=== PATIENT | female | born 1995 | race Two or more races ===

== ENCOUNTER 2023-11-12 07:49 | Emergency (ER) | payer MEDICAID, OTHER ==
[~2023-11-12] VITALS: Ht 167.6 cm; Wt 101.2 kg
[2023-11-12 08:00] VITALS: BP 117/76; TEMP 98
[2023-11-12 08:35] VITALS: PULSE 85; RESP 18; O2SAT 97
[2023-11-12] MEDS ORDERED: DOXY-286 PO (08:41)
[2023-11-12] MEDS ORDERED: CLIN1AER5 EX (08:41)
[2023-11-12] MEDS: LIDOCAINE 1% HCL (LOCAL ANESTH.) INJ 20ML MDV ID ONE (09:01)
[2023-11-12] MEDS: HYDROcodone-ACET 5/325MG TAB PO ONE (09:37)
[2023-11-12] MEDS ORDERED: IBUP-1456 PO (10:32)
[2023-11-12] MEDS ORDERED: CEPH500C PO (10:32)
== END 2023-11-12 09:47 | disposition home or self-care (01) ==
LOC: ER 07:49
DX: L02.31 Cutaneous abscess of buttock (principal); L73.2 Hidradenitis suppurativa; Z79.1 Long term (current) use of non-steroidal anti-inflammatories (NSAID); Z79.899 Other long term (current) drug therapy
CPT/HCPCS: 10060; 99283; J2001

== ENCOUNTER 2023-12-20 07:47 | Emergency (ER) | payer MEDICAID ==
[~2023-12-20] VITALS: Ht 167.6 cm; Wt 97.7 kg
[~2023-12-20 07:47] MED LIST: CEPH500C PO; IBUP-1456 PO
[2023-12-20] MEDS ORDERED: BENZ200C64 PO (08:34)
[2023-12-20 08:38] VITALS: BP 106/52; PULSE 78; RESP 16; TEMP 97.7; O2SAT 98
== END 2023-12-20 08:40 | disposition home or self-care (01) ==
LOC: ER 07:47
DX: J20.9 Acute bronchitis, unspecified (principal)
CPT/HCPCS: 71045

== ENCOUNTER 2024-02-05 08:10 | Emergency (ER) | payer MEDICAID ==
[~2024-02-05] VITALS: Ht 167.6 cm; Wt 101.1 kg
[~2024-02-05 08:10] MED LIST changes: +BENZ200C64 PO
[2024-02-05 08:57] VITALS: BP 130/85; PULSE 93; RESP 18; TEMP 97.7; O2SAT 98
[2024-02-05 09:26] LABS: Urine Bacteria FEW /hpf (None Seen); Urine Blood Negative /uL (Negative); Urine Clarity Turbid (Clear); Urine Protein, UAD Negative (Negative); Urine Urobilinogen Normal (Negative); Urine WBC 8 /hpf (0 - 5); Urine pH 6.5 (5.0-9.0)
[2024-02-05 09:28] LABS: Urine Color Straw (Yellow)
[2024-02-05] MEDS ORDERED: PHEN95TA10 PO (10:02)
[2024-02-05] MEDS ORDERED: NITR-87 PO (10:02)
[2024-02-06 08:06] LABS: RPR Non Reactive (Non Reactive)
[2024-02-06 22:06] LABS: Chlamydia Trachomatis, NAA Negative (Negative); Neisseria gonorrhoeae, NAA Negative (Negative)
== END 2024-02-05 10:03 | disposition home or self-care (01) ==
LOC: ER 08:10
DX: N30.90 Cystitis, unspecified without hematuria (principal); Z20.6 Contact with and (suspected) exposure to human immunodeficiency virus [HIV]
CPT/HCPCS: 81001; 86592; 86703

== ENCOUNTER 2024-08-31 08:21 | Emergency (ER) | payer MEDICAID ==
[~2024-08-31] VITALS: Ht 167.6 cm; Wt 95.1 kg
[~2024-08-31 08:21] MED LIST changes: +NITR-87 PO; +PHEN95TA10 PO
--- NOTE | 2024-08-31 09:11 | ED.PDOC ---
History of Present Illness HPI Comments 29F presents to the ER w/ no prior Hx associated to the c/c of lower back pain. Pt reports that she had COVID 4 weeks ago and is currently negative but still has constant cough. Pt notes on also being very dizzy, and whenever she coughs, she has lower back pain. Pt also states symptoms of a AGUIRRE and weakness. Denies chills, fever, N/V/D< SOB, CP or other associated symptoms, modifiers or recent injuries or sick contact at this time. Chief Complaint: Back Pain Time Seen by MD: 08:40 Primary Care Provider: raffi Reviewed Notes: Nurses Notes, Medications, Allergies Allergies: Coded Allergies: NO KNOWN ALLERGIES (Unverified , 11/12/23) Home Meds Active Scripts Acetaminophen (Tylenol) 650 Mg Rc, 650 MG PA Q6HPRN PRN, #60 SUPP.RECT Prov:JENNY DUARTE MD 08/31/24 Ibuprofen (Ibuprofen) 400 Mg Tab, 1 TAB PO Q6HPRN, #60 TAB Prov:JENNY DUARTE MD 08/31/24 Sulfamethoxazole W/Trimethopri (Bactrim Ds Tablet) 1 Tab Tb, 1 TAB PO BID for 5 Days, #10 TAB Prov:JENNY DUARTE MD 08/31/24 Phenazopyridine Hcl (Azo Tabs) 95 Mg Tab, 2 TAB PO TID for 2 Days, #12 TAB 0 Refills Prov:XENIA CADENA NP 02/05/24 Nitrofurantoin Monohydrate Mac (Macrobid) 100 Mg Cap, 100 MG PO BID for 5 Days, #10 CAP 0 Refills Prov:XENIA CADENA NP 02/05/24 Benzonatate (Benzonatate) 200 Mg Cap, 1 CAP PO TIDP, #30 CAP Prov:ARNULFO NICKERSON 12/20/23 Ibuprofen (Ibuprofen) 800 Mg Tab, 1 TAB PO TIDWM for 14 Days, #42 TAB 0 Refills Prov:XENIA CADENA NP 11/12/23 Cephalexin Monohydrate (Cephalexin) 500 Mg Cap, 1 CAP PO QID for 10 Days, #40 CAP 0 Refills Prov:XENIA CADENA NP 11/12/23 Information Source: Patient Mode of Arrival: Ambulatory Severity: Moderate Timing: Weeks Duration: Since onset Prehospital treatment: None Past Medical History PAST MEDICAL HISTORY: Denies Surgical History: Denies all surgeries FILLING HAND History: No Pertinent FILLING HAND History Family History Family History: Reviewed,noncontributory to illness, Unknown Social History Smoker: Non-Smoker Alcohol: Denies ETOH Use Drugs: Denies Drug Use Lives In: Home Constitutional: denies: chills, diaphoresis, fatigue, fever, malaise, sweats, weakness, others EENTM: denies: blurred vision, double vision, ear bleeding, ear discharge, ear drainage, ear pain, ear ringing, eye pain, eye redness, hearing loss, mouth pain, mouth swelling, nasal discharge, nose bleeding, nose congestion, nose pain, photophobia, tearing, throat pain, throat swelling, voice changes, others Respiratory: reports: cough; denies: hemoptysis, orthopnea, SOB at rest, shortness of breath, SOB with excertion, stridor, wheezing, others Cardiovascular: denies: chest pain, dizzy spells, diaphoresis, Dyspnea on exertion, edema, irregular heart beat, left arm pain, lightheadedness, palpitations, PND, syncope, others Gastrointestinal: denies: abdomen distended, abdominal pain, blood streaked bowels, constipated, diarrhea, dysphagia, difficulty swallowing, hematemesis, melena, nausea, poor appetite, poor fluid intake, rectal bleeding, rectal pain, vomiting, others Genitourinary: denies: abnormal vagina bleeding, burning, dyspareunia, dysuria, flank pain, frequency, hematuria, incontinence, pain, , vagina discharge, urgency, others Neurological: denies: dizziness, fainting, headache, left sided numbness, left sided weakness, numbness, paresthesia, pre-existing deficit, right sided numbness, right sided weakness, seizure, speech problems, tingling, tremors, weakness, others Musculoskeletal: reports: back pain; denies: gout, joint pain, joint swelling, muscle pain, muscle stiffness, neck pain, others Integumetry: denies: bruises, change in color, change in hair/nails, dryness, laceration, lesions, lumps, rash, wounds, others Allergic/Immunocompromised: denies: Difficulty Healing, Frequent Infections, Hives, Itching, others Hematologic/Lymphatic: denies: anemia, blood clots, easy bleeding, easy bruising, swollen glands, others Endocrine: denies: excessive hunger, excessive sweating, excessive thirst, excessive urination, flushing, intolerance to cold, intolerance to heat, unexplained weight gain, unexplained weight loss, others Psychiatric: denies: anxiety, bipolar disorder, depression, hopeless, panic disorder, schizophrenia, sleepless, suicidal, others All Other Systems: Reviewed and Negative Physical Exam General Appearance: No Apparent Distress, Normal HEENT: Normal ENT Inspection, Pharynx Normal, TMs Normal Neck: Full Range of Motion, Non-Tender, Normal, Normal Inspection Respiratory: Chest Non-Tender, Lungs Clear, No Accessory Muscle Use, No Respiratory Distress, Normal Breath Sounds Cardiovascular: No Edema, No JVD, No Murmur, No Gallop, Normal Peripheral Pulses, Regular Rate/Rhythm Breast Exam: Deferred Gastrointestinal: No Organomegaly, Non Tender, No Pulsatile Mass, Normal Bowel Sounds, Soft Genitalia: Deferred Pelvic: Deferred Rectal: Deferred Extremities: No calf tenderness, Normal capillary refill, Normal inspection, Normal range of motion, Non-tender, No pedal edema Musculoskeletal : Apperance: Normal Neurologic: Alert, multiple sclerosis nurse II-XII nml as Tested, No Motor Deficits, Normal Affect, Normal Mood, No Sensory Deficits Cerebellar Function: Normal Reflexes: Normal Skin: Dry, Normal Color, Warm Lymphatic: No Adenopathy Was a procedure done? Was a procedure done?: No Differential Dx Considerations may include: Musculoskeletal pain, pyelonephritis, viral URI X-Ray, Labs, Meds, VS Vital Signs Date Time Temp Pulse Resp B/P (MAP) Pulse Ox O2 Delivery O2 Flow Rate FiO2 08/31/24 13:23 98.1 95 18 98/75 (83) 97 98.1 08/31/24 09:19 107 16 99 Room Air* 0 21 08/31/24 09:18 97.6 107 16 124/87 (99) 99 97.6 08/31/24 08:37 97.9 100 19 117/70 (86) 97 Lab Test 08/31/24 09:12 08/31/24 08:58 Range/Units Influenza Type A Antigen Negative Negative Influenza Type B Antigen Negative Negative Urine Color Light-yellow Yellow Urine Clarity Clear Clear Urine pH 5.5 5.0-9.0 Urine Specific Pey[place] 1.025 1.001-1.035 Urine Protein Negative Negative Urine Ketones Negative Negative Urine Blood Negative Negative /uL Urine Nitrite Negative Negative Urine Bilirubin Negative Negative Urine Urobilinogen Normal Negative mg/dL Urine Leukocyte Esterase 2+ Negative /uL Urine RBC 2 0 - 4 /hpf Urine WBC 5 0 - 5 /hpf Urine Squamous Epithelial Cells Few <5 /hpf Urine Bacteria None seen None Seen /hpf Urine Glucose Normal Normal mg/dL Urine Test Negative Negative Group A Streptococcus Rapid Negative Current Medications Medications (Trade) Dose Ordered Sig/Negrita Route Start Time Stop Time Status Last Admin Ketorolac Tromethamine (Toradol Injection) 30 mg ONCE ONCE IM 08/31/24 14:00 08/31/24 14:01 DC 08/31/24 14:00 Time of 1ST Reevaluation: 09:10 Reevaluation 1ST: Unchanged Patient Education/Counseling: Diagnosis, Treatment, Prognosis Family Education/Counseling: No Family Present Departure 1 Departure Time of Disposition: 17:45 Impression: Primary Impression: Cystitis Additional Impression: URI (upper respiratory infection) Disposition: 01 HOME / SELF CARE / HOMELESS Condition: Stable Additional Instructions: Thank you for visiting our Emergency Room. I wish you full and complete recovery. Please follow the following instructions: 1. Take your medication bottles with you to EVERY DOCTOR'S VISIT (including your primary doctor). 2. Please follow up with your primary doctor in 2-3 days or sooner if symptoms do not improve. 3. Please read all the papers given to you at the time of the discharge so that you understand your condition better. 4. Please note that the emergency room visits are focused and not necessarily comprehensive. Therefore, it is possible that some occult medical conditions may go undiagnosed in the ER. 5. The emergency room visits are not and should not be thought of as replacement for regular visits with your primary doctor. 6. Therefore, it is absolutely critical that you follows up with your primary doctor on regular basis to make sure you receives a complete and comprehensive care. 7. I recommended the you take the hospital discharge papers to your primary care physician and other doctors' offices with you. 8. Go to your nearest emergency room if you think your condition gets worse or you think your condition is an emergency. e-Prescriptions Acetaminophen (Tylenol) 650 Mg Rc 650 MG PA Q6HPRN PRN, #60 SUPP.RECT Prov: JENNY DUARTE MD 08/31/24 Ibuprofen (Ibuprofen) 400 Mg Tab 1 TAB PO Q6HPRN, #60 TAB Prov: JENNY DUARTE MD 08/31/24 Sulfamethoxazole W/Trimethopri (Bactrim Ds Tablet) 1 Tab Tb 1 TAB PO BID for 5 Days, #10 TAB Prov: JENNY DUARTE MD 08/31/24 Discharged With: Self Critical Care Note Critical Care Time?: No Stability Stability form required: No I personally scribed for JENNY DUARTE MD ([email or web address]) on 08/31/24 at 09:11. Electronically submitted by Barrington Montejo ([email or web address]). JENNY DUARTE MD Aug 31, 2024 09:11
[2024-08-31 09:19] VITALS: PULSE 107; RESP 16; O2SAT 99
[2024-08-31 10:30] LABS: Urine Bacteria None Seen /hpf (None Seen)
[2024-08-31 11:07] LABS: Urine Blood Negative /uL (Negative); Urine Clarity Clear (Clear); Urine Color Light-Yellow (Yellow); Urine Protein, UAD Negative (Negative); Urine Specific Gravity 1.025 (1.001-1.035); Urine Squamous Epithelial Cell FEW /hpf (<5); Urine Urobilinogen Normal (Negative); Urine WBC 5 /hpf (0 - 5); Urine pH 5.5 (5.0-9.0)
[2024-08-31 12:03] LABS: Rapid Strep A Screen-Throat Negative
[2024-08-31 12:04] LABS: Rapid Influenza A Negative (Negative); Rapid Influenza B Negative (Negative)
[2024-08-31] MEDS ORDERED: BACDST PO (12:49)
[2024-08-31] MEDS ORDERED: IBUP-1453 PO (13:22)
[2024-08-31] MEDS ORDERED: ACE650RS PR (13:22)
[2024-08-31 13:23] VITALS: BP 98/75; PULSE 95; RESP 18; TEMP 98.1; O2SAT 97
[2024-08-31] MEDS: KETOROLAC TROMETH 60MG/2ML VIAL IM ONE (14:00)
== END 2024-08-31 14:03 | disposition home or self-care (01) ==
LOC: ER 08:21
DX: N30.90 Cystitis, unspecified without hematuria (principal); J06.9 Acute upper respiratory infection, unspecified; Z32.02 Encounter for pregnancy test, result negative
CPT/HCPCS: 81001; 81025; 87070; 87804; 87880; 96372; 99283; J1885

== ENCOUNTER 2025-02-16 10:38 | Emergency (ER) | payer MEDICAID ==
[~2025-02-16] VITALS: Ht 167.6 cm; Wt 81.6 kg
[~2025-02-16 10:38] MED LIST changes: +ACE650RS PR; +BACDST PO; +IBUP-1453 PO
[2025-02-16 11:18] LABS: Urine Bacteria None Seen /hpf (None Seen)
--- NOTE | 2025-02-16 11:23 | ED.PDOC ---
History of Present Illness HPI Comments 29-year-old female with no reported PMHx presents with a chief complaint of cold symptoms x 1 week. Patient states that she is experiencing nausea, vomiting, nasal congestion, coughing fits, and muscle pain. Patient reports that her pain is localized to her chest wall, occurs when coughing. Patient mentions that she has been feeling worse over the past x 2 days. Patient denies any chest pain, headache, SOB, abdomen pain, or dizziness. Chief Complaint: Flu like Time Seen by MD: 11:04 Primary Care Provider: JACKLYN Reviewed Notes: Nurses Notes, Medications, Allergies Allergies: Coded Allergies: NO KNOWN ALLERGIES (Unverified , 11/12/23) Home Meds Active Scripts Acetaminophen (Acetaminophen) 500 Mg Tab, 500 MG PO Q6HP PRN for 5 Days, #20 TAB 0 Refills Prov:XENIA CADENA NP 02/16/25 Ondansetron HCl (Ondansetron) 4 Mg Tab, 4 MG PO Q8HP PRN for 2 Days, #6 TAB 0 Refills Prov:XENIA CADENA NP 02/16/25 Benzonatate (Benzonatate) 100 Mg Cap, 1 CAP PO TID for 10 Days, #30 CAP 0 Refills Prov:XENIA CADENA NP 02/16/25 Pseudoephedrine-Guaifenesin (Mucinex D) 1 Tab Tab, 1 TAB PO BID for 10 Days, #20 TAB 0 Refills Prov:XENIA CADENA NP 02/16/25 Acetaminophen (Tylenol) 650 Mg Rc, 650 MG [place] Q6HPRN PRN, #60 SUPP.RECT Prov:JENNY DUARTE MD 08/31/24 Ibuprofen (Ibuprofen) 400 Mg Tab, 1 TAB PO Q6HPRN, #60 TAB Prov:JENNY DUARTE MD 08/31/24 Sulfamethoxazole W/Trimethopri (Bactrim Ds Tablet) 1 Tab Tb, 1 TAB PO BID for 5 Days, #10 TAB Prov:JENNY DUARTE MD 08/31/24 Phenazopyridine Hcl (Azo Tabs) 95 Mg Tab, 2 TAB PO TID for 2 Days, #12 TAB 0 Re fills Prov:XENIA CADENA NP 02/05/24 Nitrofurantoin Monohydrate Mac (Macrobid) 100 Mg Cap, 100 MG PO BID for 5 Days, #10 CAP 0 Refills Prov:XENIA CADENA DARCY 02/05/24 Benzonatate (Benzonatate) 200 Mg Cap, 1 CAP PO TIDP, #30 CAP Prov:ARNULFO NICKERSON 12/20/23 Ibuprofen (Ibuprofen) 800 Mg Tab, 1 TAB PO TIDWM for 14 Days, #42 TAB 0 Refills Prov:NATALIA CADENAJaden Jarrett [employer] 11/12/23 Cephalexin Monohydrate (Cephalexin) 500 Mg Cap, 1 CAP PO QID for 10 Days, #40 CAP 0 Refills Prov:XENIA CADENA [employer] 11/12/23 Information Source: Patient Mode of Arrival: Ambulatory Severity: Moderate Timing: Days Duration: Since onset Prehospital treatment: None Past Medical History PAST MEDICAL HISTORY: Denies Surgical History: Denies all surgeries TRAFFIC SIGN SUPERVISOR History: No Pertinent TRAFFIC SIGN SUPERVISOR History Family History Family History: Reviewed,noncontributory to illness, Unknown Social History Smoker: Non-Smoker Alcohol: Denies ETOH Use Drugs: Denies Drug Use Lives In: Home Constitutional: denies: chills, diaphoresis, fatigue, fever, malaise, sweats, weakness, others EENTM: reports: nose congestion; denies: blurred vision, double vision, ear bleeding, ear discharge, ear drainage, ear pain, ear ringing, eye pain, eye redness, hearing loss, mouth pain, mouth swelling, nasal discharge, nose bleeding, nose pain, photophobia, tearing, throat pain, throat swelling, voice changes, others Respiratory: reports: cough; denies: hemoptysis, orthopnea, SOB at rest, shortness of breath, SOB with excertion, stridor, wheezing, others Cardiovascular: denies: chest pain, dizzy spells, diaphoresis, Dyspnea on exertion, edema, irregular heart beat, left arm pain, lightheadedness, palpitations, PND, syncope, others Gastrointestinal: reports: nausea, vomiting; denies: abdomen distended, abdominal pain, blood streaked bowels, constipated, diarrhea, dysphagia, difficulty swallowing, hematemesis, melena, poor appetite, poor fluid intake, rectal bleeding, rectal pain, others Genitourinary: denies: abnormal vagina bleeding, burning, dyspareunia, dysuria, flank pain, frequency, hematuria, incontinence, pain, , vagina discharge, urgency, others Neurological: denies: dizziness, fainting, headache, left sided numbness, left sided weakness, numbness, paresthesia, pre-existing deficit, right sided numbness, right sided weakness, seizure, speech problems, tingling, tremors, weakness, others Musculoskeletal: reports: muscle pain; denies: back pain, gout, joint pain, joint swelling, muscle stiffness, neck pain, others Integumetry: denies: bruises, change in color, change in hair/nails, dryness, laceration, lesions, lumps, rash, wounds, others Allergic/Immunocompromised: denies: Difficulty Healing, Frequent Infections, Hives, Itching, others Hematologic/Lymphatic: denies: anemia, blood clots, easy bleeding, easy bruising, swollen glands, others Endocrine: denies: excessive hunger, excessive sweating, excessive thirst, excessive urination, flushing, intolerance to cold, intolerance to heat, unexplained weight gain, unexplained weight loss, others Psychiatric: denies: anxiety, bipolar disorder, depression, hopeless, panic disorder, schizophrenia, sleepless, suicidal, others All Other Systems: Reviewed and Negative Physical Exam General Appearance: No Apparent Distress, Normal HEENT: Normal ENT Inspection, Pharynx Normal, TMs Normal Neck: Full Range of Motion, Non-Tender, Normal, Normal Inspection Respiratory: Chest Non-Tender, Lungs Clear, No Accessory Muscle Use, No Respiratory Distress, Normal Breath Sounds Cardiovascular: No Murmur, No Gallop, Regular Rate/Rhythm Breast Exam: Deferred Gastrointestinal: No Organomegaly, Non Tender, No Pulsatile Mass, Normal Bowel Sounds, Soft Genitalia: Deferred Pelvic: Deferred Rectal: Deferred Extremities: No calf tenderness, Normal capillary refill, Normal inspection, Normal range of motion, Non-tender, No pedal edema Musculoskeletal : Apperance: Normal Neurologic: Alert, feed mixer II-XII nml as Tested, No Motor Deficits, Normal Affect, Normal Mood, No Sensory Deficits Cerebellar Function: Normal Reflexes: Normal Skin: Dry, Normal Color, Warm Lymphatic: No Adenopathy Was a procedure done? Was a procedure done?: No Differential Dx Considerations may include: URI, viral, COVID, X-Ray, Labs, Meds, VS Vital Signs Date Time Temp Pulse Resp B/P (MAP) Pulse Ox O2 Delivery O2 Flow Rate FiO2 02/16/25 13:12 87 16 97 Room Air 02/16/25 13:12 98.7 78 16 122/87 (99) 98 98.7 02/16/25 11:30 Room Air* 0 21 02/16/25 11:04 98.1 87 16 24/80 (62) 95 98.1 Lab Test 02/16/25 11:28 02/16/25 11:06 Range/Units White Blood Count 8.4 4.4-10.8 10^3/uL Red Blood Count 5.69 H 4.0-5.20 10^6/uL Hemoglobin 14.7 12.2-16.2 g/dL Hematocrit 43.6 36.0-46.0 % Mean Corpuscular Volume 76.7 L 80.0-100.0 fL Mean Corpuscular Hemoglobin 25.8 L 28.0-32.0 pg Mean Corpuscular Hemoglobin Concent 33.6 32.0-36.0 g/dL Red Cell Distribution Width 14.8 H 11.8-14.3 % Platelet Count 528 H 140-450 10^3/uL Mean Platelet Volume 7.7 6.9-10.8 fL Neutrophils (%) (Auto) 65.5 37.0-80.0 % Lymphocytes (%) (Auto) 24.0 10.0-50.0 % Monocytes (%) (Auto) 8.1 0.0-12.0 % Eosinophils (%) (Auto) 1.6 0.0-7.0 % Basophils (%) (Auto) 0.8 0.0-2.0 % Neutrophils # (Auto) 5.5 1.6-8.6 10 ^3/uL Lymphocytes # (Auto) 2.0 0.4-5.4 10 ^3/uL Monocytes # (Auto) 0.7 0-1.3 10 ^3/uL Eosinophils # (Auto) 0.1 0-0.8 10 ^3/uL Basophils # (Auto) 0.1 0-0.2 10 ^3/uL Nucleated Red Blood Cells 0.1 % Sodium Level 141 136-145 mmol/L Potassium Level 4.6 3.5-5.1 mmol/L Chloride Level 105 98-107 mmol/L Carbon Dioxide Level 27 20-31 mmol/L Anion Gap 9 5-15 Blood Urea Nitrogen 11 9-23 mg/dL Creatinine 0.83 0.550-1.02 mg/dL Glomerular Filtration Rate Calc 99 >90 mL/min BUN/Creatinine Ratio 13.3 10.0-20.0 Serum Glucose 85 74-106 mg/dL Calcium Level 10.2 8.7-10.4 mg/dL Urine Color Colorless Yellow Urine Clarity Turbid H Clear Urine pH 6.0 5.0-9.0 Urine Specific [place] 1.009 1.001-1.035 Urine Protein Negative Negative Urine Ketones Negative Negative Urine Blood Negative Negative /uL Urine Nitrite Negative Negative Urine Bilirubin Negative Negative Urine Urobilinogen Normal Negative mg/dL Urine Leukocyte Esterase Trace Negative /uL Urine RBC 1 0 - 4 /hpf Urine Microscopic WBC 7 H 0-5 /HPF Urine Squamous Epithelial Cells Few <5 /hpf Urine Bacteria None seen None Seen /hpf Urine Glucose Normal Normal mg/dL Current Medications Medications (Trade) Dose Ordered Sig/Negrita Route Start Time Stop Time Status Last Admin Sodium Chloride 1,000 ml @ 1,000 mls/hr Q1H ONCE IV 02/16/25 11:15 02/16/25 12:14 DC 02/16/25 11:37 X-Ray, Labs, Meds, VS Comment The patient is overall well-appearing nontoxic on exam. On physical exam, respirations even and unlabored, clear to auscultation bilaterally. Oxygen stable on room air. Chest x-ray was obtained and interpreted independently by myself as not showing focal consolidation or lobar pneumonia Low suspicion of strep pharyngitis given physical exam findings and patient's presenting symptoms Overall, the patient is well hydrated and nontoxic. Plan for symptomatic con trol for fever and pain as needed. The patient was able to tolerate p.o. intake in the ED. at this time, patient is safe for discharge home. The exam findings and plan discussed. We will discharge home with PCP follow up and strict return precautions. Discussed that cough can linger up to 6 weeks after viral URI Supportive care and return precautions discussed Counseled viral infection and explained that antibiotics would not be helpful in resolving the illness sooner. Recommended vitamin C, rest, handwashing, and symptomatic care. Expect 2-week course with possibly of cough lingering up to 6 weeks. Nonpharmacological remedies for fluids has been recommended as well Patient is stable for discharge at this time. External notes reviewed. Test results and diagnostic imaging interpreted. All diagnostic findings, discharge care, education and instructions provided Follow-up with PCP in 2 to 3 days Patient verbalized understanding and agreed to treatment plan Vital signs stable, afebrile, no acute distress noted Patient ambulatory with strong steady gait Advised to return precautions for any new or worsening symptoms, return to ER im mediately for re-evaluation Patient is aware that the purpose of this visit was for an acute medical emergency requiring emergent stabilization. Chronic conditions, including malignancies have not been ruled out. Patient is instructed to follow up with PCP as directed and discharge instructions for continued care and workup. If unable to arrange follow-up, patient is to return to the emergency department for reassessment. Patient (parent or legal guardian if applicable) was given verbal and written discharge instructions and acknowledges understanding. Time of 1ST Reevaluation: 11:39 Reevaluation 1ST: Improved Patient Education/Counseling: Diagnosis, Treatment, Prognosis Family Education/Counseling: No Family Present SEPSIS Sepsis Screen Date sepsis recognized/suspect: Feb 16, 2025 Time Sepsis recognized/suspect: 1044 Recent Procedure: No On Antibiotic Therapy: No Respiratory Rate >20: No Heart Rate >90: No Temp<36 C (96.8 F) or >38.3 C: No SBP <90 or MAP <65 mmHG: No New Acute Mental Status Change: No Is the patient on CPAP, BIPAP,: No Physician Orders Heplock Iv (02/16/25 11:07) Chest Two Views Routine (02/16/25 11:07) Vital Signs Date Time Temp Pulse Resp B/P (MAP) Pulse Ox O2 Delivery O2 Flow Rate FiO2 02/16/25 13:12 87 16 97 Room Air 02/16/25 13:12 98.7 78 16 122/87 (99) 98 98.7 02/16/25 11:30 Room Air* 0 21 02/16/25 11:04 98.1 87 16 24/80 (62) 95 98.1 Laboratory Tests Test 02/16/25 11:28 White Blood Count 8.4 10^3/uL (4.4-10.8) Departure 1 Departure Time of Disposition: 12:47 Impression: Primary Impression: Viral syndrome Disposition: 01 HOME / SELF CARE / HOMELESS Condition: Fair e-Prescriptions Acetaminophen (Acetaminophen) 500 Mg Tab 500 MG PO Q6HP PRN for 5 Days, #20 TAB 0 Refills Prov: XENIA CADENA [employer] 02/16/25 Ondansetron HCl (Ondansetron) 4 Mg Tab 4 MG PO Q8HP PRN for 2 Days, #6 TAB 0 Refills Prov: XENIA CADENA [employer] 02/16/25 Benzonatate (Benzonatate) 100 Mg Cap 1 CAP PO TID for 10 Days, #30 CAP 0 Refills Prov: XENIA CADENA NP 02/16/25 Pseudoephedrine-Guaifenesin (Mucinex D) 1 Tab Tab 1 TAB PO BID for 10 Days, #20 TAB 0 Refills Prov: XENIA CADENA [employer] 02/16/25 Critical Care Note Critical Care Time?: No I personally scribed for XENIA CADENA [employer] ([email or web address]) on 02/16/25 at 11:23. El ectronically submitted by Cyrus Mercer ([email or web address]). I personally scribed for XENIA CADENA NP ([email or web address]) on 02/16/25 at 11:53. Kateryna ctronically submitted by Cyrus Mercer ([email or web address]). XENIA CADENA NP Feb 16, 2025 11:23
[2025-02-16 11:33] LABS: Urine Blood Negative /uL (Negative); Urine Clarity Turbid (Clear); Urine Color Colorless (Yellow); Urine Protein, UAD Negative (Negative); Urine Specific Gravity 1.009 (1.001-1.035); Urine Squamous Epithelial Cell FEW /hpf (<5); Urine Urobilinogen Normal (Negative); Urine WBC 7 /HPF (0-5)
--- NOTE | 2025-02-16 11:35 | DVH ---
XY CHEST TWO VIEWS ROUTINE, HISTORY: R/o PNA COMPARISON: None None TECHNICAL DATA: 2 view of the chest was obtained. FINDINGS: Lines and tubes: None Cardiomediastinal silhouette: normal Pulmonary vasculature: normal Lung expansion: normal Lung airspace: normal Lung interstitium: normal Pleura: normal Pneumothorax: no Bones: Unremarkable Other: no IMPRESSION: No acute intrathoracic abnormality.
[2025-02-16] MEDS: SODIUM CHLORIDE 0.9% 1,000 ML IV ONE (11:37)
[2025-02-16 11:54] LABS: Basophils # (auto) 0.1 10 ^3/uL (0-0.2); Eosinophils # (auto) 0.1 10 ^3/uL (0-0.8); Eosinophils % (auto) 1.6 % (0.0-7.0); Monocytes # (auto) 0.7 10 ^3/uL (0-1.3)
[2025-02-16 11:55] LABS: Basophils % (auto) 0.8 % (0.0-2.0); Hematocrit 43.6 % (36.0-46.0); Hemoglobin 14.7 g/dL (12.2-16.2); Mean Corpuscular Hemoglobin 25.8 pg (28.0-32.0); Mean Corpuscular Hgb Conc. 33.6 g/dL (32.0-36.0); Mean Corpuscular Volume 76.7 fL (80.0-100.0); Monocytes % (auto) 8.1 % (0.0-12.0); Neutrophils # (auto) 5.5 10 ^3/uL (1.6-8.6); Neutrophils % (auto) 65.5 % (37.0-80.0); Nucleated Red Blood Cells % 0.1 %; Platelet Count (auto) 528 10^3/uL (140-450); Red Blood Cells 5.69 10^6/uL (4.0-5.20); Red Cell Distribution Width 14.8 % (11.8-14.3); White Blood Cell 8.4 10^3/uL (4.4-10.8)
[2025-02-16 12:03] LABS: Anion Gap 9 (5-15); Carbon Dioxide 27 mmol/L (20-31); Chloride 105 mmol/L (98-107); Potassium 4.6 mmol/L (3.5-5.1); Sodium 141 mmol/L (136-145)
[2025-02-16 12:05] LABS: Calcium 10.2 mg/dL (8.7-10.4)
[2025-02-16 12:09] LABS: BUN/Creatinine Ratio 13.3 (10.0-20.0); Blood Urea Nitrogen 11 mg/dL (9-23); Glucose 85 mg/dL (74-106)
[2025-02-16] MEDS ORDERED: ACET500T58 PO (12:48)
[2025-02-16] MEDS ORDERED: PSEU120T18 PO (12:48)
[2025-02-16] MEDS ORDERED: BENZ100C97 PO (12:48)
[2025-02-16] MEDS ORDERED: ONDA-155 PO (12:48)
[2025-02-16 13:12] VITALS: BP 122/87; PULSE 87; RESP 16; TEMP 98.7; O2SAT 97
== END 2025-02-16 13:14 | disposition home or self-care (01) ==
LOC: ER 10:38
DX: B34.9 Viral infection, unspecified (principal); R11.2 Nausea with vomiting, unspecified
CPT/HCPCS: 36415; 71046; 80048; 81001; 85025; 96360; 99284; J7030

== ENCOUNTER 2025-04-03 19:57 | Emergency (ER) | payer MEDICAID ==
[~2025-04-03] VITALS: Ht 165.1 cm; Wt 92.8 kg
[~2025-04-03 19:57] MED LIST changes: +ACET500T58 PO; +BENZ100C97 PO; +ONDA-155 PO; +PSEU120T18 PO
[2025-04-03 20:00] VITALS: TEMP 97.5
--- NOTE | 2025-04-03 20:13 | ECG ---
[facility] Test Date: 2025-04-03 Test Time: 20:06:31 Pat Name: SIRI IRELAND Department: Room: Gender: F Survey Research Analyst: BRIANNE : 1995 Requested By: SHAGGY BANERJEE Order Number: [id number] Reading MD: Daniel Villalpando Measurements Intervals [place] Rate: 84 P: 87 HI: 152 QRS: 70 QRSD: 87 T: 62 QT: 375 QTc: 444 Interpretive Statements Sinus rhythm Low voltage, precordial leads Electronically Signed On 04-06-2025 22:52:05 PDT by Daniel Villalpando Please click the below link to view image of tracing.
[2025-04-03 20:40] LABS: Hematocrit 41.6 % (36.0-46.0); Hemoglobin 14.0 g/dL (12.2-16.2); Mean Corpuscular Hemoglobin 26.2 pg (28.0-32.0); Mean Corpuscular Volume 77.8 fL (80.0-100.0); Nucleated Red Blood Cells % 0.1 %
[2025-04-03 20:48] LABS: Chloride 106 mmol/L (98-107); Potassium 3.7 mmol/L (3.5-5.1); Sodium 141 mmol/L (136-145)
--- NOTE | 2025-04-03 20:48 | ED.PDOC ---
History of Present Illness HPI Comments 30-year-old female brought in by private car complaining of chest pain intermittently for the last 2 days. Patient describes the pain is sharp, left- sided, radiating to the throat, lasting approximately 30 seconds per episode, associated with difficulty taking a deep breath, described as her breathing feeling restricted. She denies any fever or cough. She also notes a current aura, as if she is about to develop a migraine. She denies any nausea, vomiting, diaphoresis or edema. Chief Complaint: Chest Pain Time Seen by MD: 20:01 Primary Care Provider: JACKLYN Reviewed Notes: Nurses Notes, Medications, Allergies Allergies: Coded Allergies: NO KNOWN ALLERGIES (Unverified , 11/12/23) Home Meds Active Scripts Cephalexin Monohydrate (Cephalexin) 500 Mg Cap, 1 CAP PO QID for 10 Days, #40 CAP Prov:SHAGGY SANTANA MD 04/03/25 Ibuprofen Micronized (Ibuprofen) 800 Mg Tab, 800 MG PO Q8HP PRN, #30 TAB Prov:SHAGGY SANTANA MD 04/03/25 Acetaminophen (Acetaminophen) 500 Mg Tab, 500 MG PO Q6HP PRN for 5 Days, #20 TAB 0 Refills Prov:XENIA CADENA HAMMERSMITH HELPER 02/16/25 Ondansetron HCl (Ondansetron) 4 Mg Tab, 4 MG PO Q8HP PRN for 2 Days, #6 TAB 0 Refills Prov:XENIA CADENA HAMMERSMITH HELPER 02/16/25 Benzonatate (Benzonatate) 100 Mg Cap, 1 CAP PO TID for 10 Days, #30 CAP 0 Refills Prov:XENIA CADENA NP 02/16/25 Pseudoephedrine-Guaifenesin (Mucinex D) 1 Tab Tab, 1 TAB PO BID for 10 Days, #20 TAB 0 Refills Prov:XENIA CADENA NP 02/16/25 Acetaminophen (Tylenol) 650 Mg Rc, 650 MG AL Q6HPRN PRN, #60 SUPP.RECT Prov:JENNY DUARTE MD 08/31/24 Ibuprofen (Ibuprofen) 400 Mg Tab, 1 TAB PO Q6HPRN, #60 TAB Prov:JENNY DUARTE MD 08/31/24 Sulfamethoxazole W/Trimethopri (Bactrim Ds Tablet) 1 Tab Tb, 1 TAB PO BID for 5 Days, #10 TAB Prov:JENNY DUARTE MD 08/31/24 Phenazopyridine Hcl (Azo Tabs) 95 Mg Tab, 2 TAB PO TID for 2 Days, #12 TAB 0 Refills Prov:XENIA CADENA NP 02/05/24 Nitrofurantoin Monohydrate Mac (Macrobid) 100 Mg Cap, 100 MG PO BID for 5 Days, #10 CAP 0 Refills Prov:XENIA CADENA NP 02/05/24 Benzonatate (Benzonatate) 200 Mg Cap, 1 CAP PO TIDP, #30 CAP Prov:ARNULFO NICKERSON 12/20/23 Ibuprofen (Ibuprofen) 800 Mg Tab, 1 TAB PO TIDWM for 14 Days, #42 TAB 0 Refills Prov:XENIA CADENA NP 11/12/23 Cephalexin Monohydrate (Cephalexin) 500 Mg Cap, 1 CAP PO QID for 10 Days, #40 CAP 0 Refills Prov:XENIA CADENA NP 11/12/23 Mode of Arrival: Ambulatory Past Medical History Past Medical History (Other): Migraines, PCOS, platelet abnormality Surgical History: DERMATOLOGY TECHNICIAN History: No Pertinent DERMATOLOGY TECHNICIAN History Family History Family History: Family hx of Cancer Family History (Other): Father with a history of VTE Social History Smoker: Non-Smoker Alcohol: Denies ETOH Use Drugs: Denies Drug Use Lives In: Home All Other Systems: Reviewed and Negative (Comprehensive systems review obtained and negative except for what is stated in the HPI.) Physical Exam General Appearance: No Apparent Distress, Obese HEENT: Other (Pupils and face symmetric. Moist mucous membranes.) Neck: Full Range of Motion, Normal Inspection Respiratory: Lungs Clear, No Accessory Muscle Use, No Respiratory Distress, Normal Breath Sounds Cardiovascular: No Edema, No JVD, Regular Rate/Rhythm Breast Exam: Deferred Gastrointestinal: Non Tender, Soft Genitalia: Deferred Pelvic: Deferred Rectal: Deferred Extremities: Normal inspection, Normal range of motion, Non-tender, No pedal edema Neurologic: Alert (Oriented x4), Normal Affect, Normal Mood, Other (Ambulatory) Cerebellar Function: NOT DONE Reflexes: NOT DONE Skin: Dry, Normal Color, Warm Lymphatic: NOT DONE Was a procedure done? Was a procedure done?: No EKG EKG : Comments Sinus rhythm, rate 84, normal intervals, normal axis, normal QRS, no ST/T change. Differential Dx Considerations may include: Chest wall pain, infection such as bronchitis or pneumonia, ACS, DC, arrhythmia, PE, among others X-Ray, Labs, Meds, VS Vital Signs Date Time Temp Pulse Resp B/P (MAP) Pulse Ox O2 Delivery O2 Flow Rate FiO2 04/03/25 21:43 86 24 134/90 (105) 99 04/03/25 20:06 84 04/03/25 20:00 97.5 89 17 134/95 98 97.5 Lab Test 04/03/25 21:11 04/03/25 21:06 04/03/25 20:23 Range/Units Urine Color Light-yellow Yellow Urine Clarity Clear Clear Urine pH 5.5 5.0-9.0 Urine Specific Mcneal 1.012 1.001-1.035 Urine Protein Negative Negative Urine Ketones Negative Negative Urine Blood 2+ H Negative /uL Urine Nitrite Negative Negative Urine Bilirubin Negative Negative Urine Urobilinogen Normal Negative mg/dL Urine Leukocyte Esterase 1+ Negative /uL Urine RBC 1 0 - 4 /hpf Urine Microscopic WBC 13 H 0-5 /HPF Urine Squamous Epithelial Cells Few <5 /hpf Urine Bacteria Few H None Seen /hpf Urine Glucose Normal Normal mg/dL Urine Test Negative Negative Troponin I High Sensitivity 11 10 </=34 ng/L White Blood Count 10.5 4.4-10.8 10^3/uL Red Blood Count 5.34 H 4.0-5.20 10^6/uL Hemoglobin 14.0 12.2-16.2 g/dL Hematocrit 41.6 36.0-46.0 % Mean Corpuscular Volume 77.8 L 80.0-100.0 fL Mean Corpuscular Hemoglobin 26.2 L 28.0-32.0 pg Mean Corpuscular Hemoglobin Concent 33.6 32.0-36.0 g/dL Red Cell Distribution Width 16.2 H 11.8-14.3 % Platelet Count 873 *H 140-450 10^3/uL Mean Platelet Volume 7.1 6.9-10.8 fL Neutrophils (%) (Auto) 67.1 37.0-80.0 % Lymphocytes (%) (Auto) 21.7 10.0-50.0 % Monocytes (%) (Auto) 8.8 0.0-12.0 % Eosinophils (%) (Auto) 1.9 0.0-7.0 % Basophils (%) (Auto) 0.5 0.0-2.0 % Neutrophils # (Auto) 7.0 1.6-8.6 10 ^3/uL Lymphocytes # (Auto) 2.3 0.4-5.4 10 ^3/uL Monocytes # (Auto) 0.9 0-1.3 10 ^3/uL Eosinophils # (Auto) 0.2 0-0.8 10 ^3/uL Basophils # (Auto) 0.1 0-0.2 10 ^3/uL Nucleated Red Blood Cells 0.1 % D-Dimer, Quantitative 0.41 0.0-0.49 mg/L FEU Sodium Level 141 136-145 mmol/L Potassium Level 3.7 3.5-5.1 mmol/L Chloride Level 106 98-107 mmol/L Carbon Dioxide Level 27 20-31 mmol/L Anion Gap 8 5-15 Blood Urea Nitrogen 14 9-23 mg/dL Creatinine 0.89 0.550-1.02 mg/dL Glomerular Filtration Rate Calc 91 >90 mL/min BUN/Creatinine Ratio 15.7 10.0-20.0 Serum Glucose 91 74-106 mg/dL Calcium Level 9.1 8.7-10.4 mg/dL B-Type Natriuretic Peptide 13.52 0-100 pg/mL Current Medications Medications (Trade) Dose Ordered Sig/Negrita Route Start Time Stop Time Status Last Admin Lorazepam (Ativan Inj) 0.5 mg ONCE ONCE IV 04/03/25 21:45 04/03/25 21:58 DC 04/03/25 22:01 Ceftriaxone Sodium (Rocephin) 1,000 mg ONCE ONCE IM 04/03/25 23:15 04/03/25 23:16 DC 04/03/25 23:20 Chest x-ray one view independently interpreted by me: Cardiac silhouette upper limit normal, no definite infiltrate or effusion, normal mediastinal width, grossly normal bony thorax, no free air, no pneumothorax. PROCEDURE(s): CXRP - CHEST PORTABLE REASON: CP ORDER NUMBER(s): [id number], ACCESSION NUMBER(s): [id number] CHEST RADIOGRAPH Indication: CP Technique: Single frontal view of the chest was obtained Comparison: XY CHEST TWO VIEWS ROUTINE on DOS: 02/16/25, XY CHEST PORTABLE on DOS: 12/20/23 FINDINGS: Lines and Tubes: None Lungs: No focal consolidation. Pleura: No effusion. No pneumothorax. Cardiomediastinal contours: Unremarkable Bones: No acute osseous abnormality. IMPRESSION: 1. No acute cardiopulmonary disease. X-Ray, Labs, Meds, VS Comment 30-year-old female with a history of PCOS, migraines and platelet abnormality complaining of chest pain and difficulty breathing Vitals remarkable for BP 134/95 Exam unremarkable Rhythm strip independently interpreted by me: Sinus rhythm, rate 84, no ectopy. Chest x-ray unremarkable CBC remarkable for platelets 873. Basic metabolic panel, BNP, 2 serial troponins troponin and D-dimer unremarkable. Patient treated with the following in the ED: 1 L 0.9 normal saline IV bolus, Toradol 30 mg IV, Reglan 10 mg IV, Ativan 0.5 IV, Rocephin 1 g IV Re-evaluation, patient is chest pain-free with stable vitals. She developed anxiety after Reglan administration, which improved after IV Ativan. [place] scor e is 0, [place] score is 3, D-dimer is negative. BNP and serial troponins are negative. Hospitalization was considered, however patient had rapid improvement of symptoms with treatment in the ED, and I no longer feel hospitalization is necessary. Patient now appears stable for discharge with close outpatient follow-up with her primary physician. Rx Keflex, ibuprofen Time of 1ST Reevaluation: 20:31 Reevaluation 1ST: Unchanged Patient Education/Counseling: Diagnosis, Treatment, Need For Follow Up Family Education/Counseling: Diagnosis, Treatment, Need For Follow Up SEPSIS Sepsis Screen Date sepsis recognized/suspect: Apr 03, 2025 Time Sepsis recognized/suspect: 1999 Recent Procedure: No On Antibiotic Therapy: No Respiratory Rate >20: No Heart Rate >90: No Temp<36 C (96.8 F) or >38.3 C: No SBP <90 or MAP <65 mmHG: No New Acute Mental Status Change: No Is the patient on CPAP, BIPAP,: No Physician Orders Chest Portable (04/03/25 20:12) Vital Signs Date Time Temp Pulse Resp B/P (MAP) Pulse Ox O2 Delivery O2 Flow Rate FiO2 04/03/25 21:43 86 24 134/90 (105) 99 04/03/25 20:06 84 04/03/25 20:00 97.5 89 17 134/95 98 97.5 Laboratory Tests Test 04/03/25 20:23 White Blood Count 10.5 10^3/uL (4.4-10.8) Departure 1 Departure Time of Disposition: 22:00 Impression: Primary Impression: Chest pain with low risk for cardiac etiology Additional Impressions: Thrombocytosis UTI (urinary tract infection) Disposition: HOME / SELF CARE / HOMELESS Condition: Stable Additional Instructions: Your blood tests, including screening test for heart attack, heart failure and blood clots in your lungs, were unremarkable except for a high platelet count. A high platelet count does not necessarily explain your symptoms, and can be followed up as an outpatient. Your EKG was normal. Your chest x-ray was no rmal. Your urine test showed you have a urinary tract infection, which may be contributing to your symptoms. I have prescribed antibiotics and medication for pain. Follow-up with your primary doctor in 1-2 days for referral to a mill dresser for further evaluation of your elevated platelet count. e-Prescriptions Cephalexin Monohydrate (Cephalexin) 500 Mg Cap 1 CAP PO QID for 10 Days, #40 CAP Prov: SHAGGY SANTANA MD 04/03/25 Ibuprofen Micronized (Ibuprofen) 800 Mg Tab 800 MG PO Q8HP PRN, #30 TAB Prov: SHAGGY SANTANA MD 04/03/25 Discharged With: Spouse Critical Care Note Critical Care Time?: No Stability Stability form required: No Heart Score Heart Score: Heart Score Response (Comments) Value History Moderate Suspicious 1 EKG Normal 0 Age <45 0 Risk Factors No known risk factors 0 Troponin Normal limit 0 Total 1 I personally scribed for SHAGGY SANTANA MD ([email or web address]) on 04/03/25 at 20:51. Electronically submitted by Jose Miguel Rosas ([email or web address]). SHAGGY SANTANA MD Apr 03, 2025 20:48
[2025-04-03 20:49] LABS: Anion Gap 8 (5-15); Calcium 9.1 mg/dL (8.7-10.4); Carbon Dioxide 27 mmol/L (20-31)
[2025-04-03 20:54] LABS: BUN/Creatinine Ratio 15.7 (10.0-20.0); Blood Urea Nitrogen 14 mg/dL (9-23); Glucose 91 mg/dL (74-106)
[2025-04-03] MEDS: METOCLOPRAMIDE HCL 5MG/ml INJ 2ml VIAL IV ONE (21:22)
[2025-04-03] MEDS: KETOROLAC TROMETH 30 MG/ML 1ML VIAL IV ONE (21:23)
[2025-04-03] MEDS: SODIUM CHLORIDE 0.9% 1,000 ML IV ONE (21:27)
[2025-04-03 21:43] VITALS: BP 134/90; PULSE 86; RESP 24; O2SAT 99
[2025-04-03] MEDS: LORazepam 2MG/ML-1ML VIAL IV ONE (22:01)
[2025-04-03 22:35] LABS: Urine Protein, UAD Negative (Negative)
[2025-04-03] MEDS ORDERED: CEPH500C PO (22:40)
[2025-04-03] MEDS ORDERED: IBUP-1455 PO (22:40)
[2025-04-03] MEDS ORDERED: cefTRIAXone 1GM/50ML D5W 50 ML IV ONE (22:45)
[2025-04-03] MEDS: cefTRIAXone SOD 1,000 MG VL IM ONE (23:20)
--- NOTE | 2025-04-04 00:08 | DVH ---
CHEST RADIOGRAPH Indication: CP Technique: Single frontal view of the chest was obtained Comparison: XY CHEST TWO VIEWS ROUTINE on DOS: 02/16/25, XY CHEST PORTABLE on DOS: 12/20/23 FINDINGS: Lines and Tubes: None Lungs: No focal consolidation. Pleura: No effusion. No pneumothorax. Cardiomediastinal contours: Unremarkable Bones: No acute osseous abnormality. IMPRESSION: 1. No acute cardiopulmonary disease.
== END 2025-04-03 23:27 | disposition home or self-care (01) ==
LOC: ER 19:57
DX: N39.0 Urinary tract infection, site not specified (principal); D75.839 Thrombocytosis, unspecified; R07.89 Other chest pain; Z79.899 Other long term (current) drug therapy
CPT/HCPCS: 36415; 71045; 80048; 81001; 81025; 83880; 84484; 85025; 85379; 93005; 96361; 96372; 96374; 96375; 99285; J0696; J1885; J2060; J2765; J7030